=== PATIENT | male | born 1955 | race Hispanic/Latino ===

== ENCOUNTER → 2018-06-19 | Emergency (ER) | payer SELFPAY ==
[~2018-06-19] MED LIST: ALPRAZolam 0.5 MG TAB ONE; Lisinopril 20 MG TAB ONE
[2018-06-19 15:55] LABS: Hemoglobin 16.4 g/dL (14.0-18.0); Mean Corpuscular HGB CONC 34.3 g/dL (32.0-36.0); Mean Corpuscular Hemoglobin 33.2 pg (27.0-31.0); Mean Corpuscular Volume 96.8 fL (78.0-98.0); Mean Platelet Volume 12.5 fL (7.4-10.4); Platelet Count 171 thou/uL (130-400); RBC Distribution Width 12.4 % (11.5-14.5); Red Blood Cell (RBC) Count 4.93 mill/uL (4.70-6.10); White Blood Cell (WBC) Count 6.1 thou/uL (4.8-10.8)
[2018-06-19 16:09] LABS: ALT (SGPT) 187 U/L (8-55); AST (SGOT) 106 U/L (5-34); Albumin 3.7 g/dL (3.4-4.8); Alkaline Phosphatase 89 U/L (40-150); Anion Gap 11 mmol/L (10-20); BUN (Urea Nitrogen) 9 mg/dL (8.4-25.7); Bilirubin, Total 0.5 mg/dL (0.2-1.2); Calc. Creatinine Clearance 0 mL/min (70-130); Calcium 9.3 mg/dL (7.8-10.44); Carbon Dioxide 23 mmol/L (23-31); Chloride 108 mmol/L (98-107); Estimated GFR-MDRD Greater than 90; Globulin 3.8 g/dL (2.4-3.5); Glucose 111 mg/dL (80-115); Protein, Total 7.5 g/dL (5.8-8.1); Sodium 138 mmol/L (136-145)
[2018-06-19 16:11] LABS: #Basophils 0.2 thou/uL (0.0-0.2); #Eosinphils 0.2 thou/uL (0.0-0.7); #Lymphocytes 1.2 thou/uL (1.20-3.40); #Monocytes 0.6 thou/uL (0.11-0.59); #Neutrophils 3.8 thou/uL (1.40-6.50); %Basophils 2.5 % (0.0-1.0); %Eosinophils 3.6 % (0.0-10.0); %Lymphocytes 20.3 % (21.0-51.0); %Monocytes 10.5 % (0.0-10.0); %Neutrophils 63.2 % (42.0-75.0)
[2018-06-19 16:13] LABS: MDiff Complete? YES; Manual Diff?? YES
--- NOTE | 2018-06-19 16:31 | CT ---
CTA OF THE HEAD WITHOUT AND WITH CONTRAST CTA OF THE NECK WITH CONTRAST: History Right-sided weakness. TECHNIQUE: 1. Multiple contiguous axial images were obtained in a CTA of the head without and with contrast. T hree-D sagittal and coronal MIP reformats were performed. 2. Multiple contiguous axial images were obtained in a CTA of the neck with contrast. Three-D sagit dae and coronal MIP reformats were performed. FINDINGS: CTA HEAD: There are a few scattered hypodensities in the subcortical and periventricular white matter, likely s econdary to small-vessel ischemic disease. No large confluent infarction is seen. There is no evide nce of hydrocephalus, intracranial hemorrhage, or extraaxial fluid collection. The bilateral intracranial internal carotid arteries are normal in caliber. These branch into normal -appearing anterior middle cerebral arteries. There is no evidence of focal stenosis, aneurysmal dil atation, or occlusion in the anterior circulation. The right vertebral artery is dominant. Both vertebral arteries are patent and form a normal-appeari ng basilar artery. The posterior cerebral arteries and cerebellar arteries are patent. There is no evidence of focal stenosis, aneurysmal dilatation, or occlusion in the posterior circulation. CTA NECK: There is slight limitation of evaluation of the common carotid arteries at the base of the neck secon douglas to motion artifact. Common carotid arteries have a normal origin from the aortic arch. No sign ificant atherosclerotic disease is seen in the common carotid arteries. The bilateral internal and external carotid arteries are normal in caliber without significant athero sclerotic disease. No significant narrowing is seen of either internal carotid artery per NASCET cri teria. No cervical adenopathy is seen. No obvious mass is seen in the neck. The salivary glands and thyroi d are unremarkable. Mild degenerative changes are seen in the spine. The lung apices are unremarkab le. IMPRESSION: No significant CTA abnormality of the head or neck. POS: [facility]
== END ==
LOC: BURERS 15:27
DX: I63.9 Cerebral infarction, unspecified (principal); I10 Essential (primary) hypertension; Z79.899 Other long term (current) drug therapy
CPT/HCPCS: 70450; 70496; 70498; 80053; 84484; 85025; 93005

== ENCOUNTER 2021-12-16 13:43 | Emergency (ER) | payer SELFPAY | END 2021-12-16 13:59 | disposition home or self-care (01) | LOC: BURERS 13:43 | DX: K02.9 Dental caries, unspecified (principal); K03.81 Cracked tooth; I10 Essential (primary) hypertension; E78.00 Pure hypercholesterolemia, unspecified | CPT/HCPCS: 99282 ==

== ENCOUNTER 2023-10-31 13:35 | Emergency (ER) | payer MEDICARE, OTHER ==
[~2023-10-31 13:35] MED LIST changes: -ALPRAZolam 0.5 MG TAB ONE; +Iopamidol 370 76% 100 ML VIAL ONE; -Lisinopril 20 MG TAB ONE
[2023-10-31] MEDS ORDERED: fentaNYL 50 mcg/mL 1 mL Vial ONE (13:57)
[2023-10-31] MEDS ORDERED: Ondansetron PF 4 MG/2 ML Vial ONE (13:57)
[2023-10-31 14:03] LABS: #Basophils 0.1 thou/uL (0.0-0.2); #Eosinphils 0.1 thou/uL (0.0-0.7); #Lymphocytes 0.8 thou/uL (1.20-3.40); #Monocytes 0.4 thou/uL (0.11-0.59); #Neutrophils 3.9 thou/uL (1.40-6.50); %Basophils 1.5 % (0.0-1.0); %Lymphocytes 14.7 % (21.0-51.0); %Monocytes 6.8 % (0.0-10.0); %Neutrophils 76.1 % (42.0-75.0); Hematocrit 47.4 % (42.0-52.0); Hemoglobin 15.6 g/dL (14.0-18.0); Mean Corpuscular Hemoglobin 30.8 pg (27.0-31.0); Mean Corpuscular Volume 93.2 fl (78.0-98.0); Mean Platelet Volume 8.5 fL (7.4-10.4); Platelet Count 178 10x3/uL (130-400); Red Blood Cell (RBC) Count 5.08 mill/uL (4.70-6.10); White Blood Cell (WBC) Count 5.2 10x3/uL (4.8-10.8)
[2023-10-31 14:20] LABS: ALT (SGPT) 74 U/L (8-55); AST (SGOT) 46 U/L (5-34); Albumin 3.9 g/dL (3.4-4.8); Alkaline Phosphatase 91 U/L (40-110); Anion Gap 10 mmol/L (10-20); BUN (Urea Nitrogen) 16 mg/dL (8.4-25.7); Bilirubin, Total 0.4 mg/dL (0.2-1.2); Calc. Creatinine Clearance 0 mL/min (70-130); Calcium 8.8 mg/dL (7.8-10.44); Carbon Dioxide 24 mmol/L (23-31); Chloride 109 mmol/L (98-107); Estimated GFR 88; Globulin 3.6 g/dL (2.4-3.5); Glucose 104 mg/dL (80-115); Potassium 4.1 mmol/L (3.5-5.1); Protein, Total 7.5 g/dL (5.8-8.1); Sodium 139 mmol/L (136-145)
== END 2023-10-31 15:26 | disposition home or self-care (01) ==
LOC: BURERS 13:35
DX: K57.92 Diverticulitis of intestine, part unspecified, without perforation or abscess without bleeding (principal); I10 Essential (primary) hypertension
CPT/HCPCS: 74177; 80053; 83605; 85025; 96374; 96375; J2405; J3010; Q9967